=== PATIENT | female | born 1960 | race Two or more races ===

== ENCOUNTER → 2017-12-12 | Outpatient (CLI) | payer MEDICAID | END | disposition home or self-care (01) | LOC: Rad HDHVI 08:02 | PROVIDERS: ATTEND Internal Medicine Cardiovascular Disease | DX: I25.10 Atherosclerotic heart disease of native coronary artery without angina pectoris (principal); I10 Essential (primary) hypertension | CPT/HCPCS: 93306 ==

== ENCOUNTER → 2017-12-27 | Outpatient (CLI) | payer MEDICAID ==
[~2017-12-27] VITALS: Ht 30.5 cm; Wt 0.5 kg
[~2017-12-27] MED LIST: ADENOSINE 78 MG in GIVE UN-DILUTED 0 ML IV ONE; ADENOSINE 90 MG/30 ML INJ IV ONE
== END | disposition home or self-care (01) ==
LOC: Rad HDHVI 09:04
PROVIDERS: ATTEND Internal Medicine Cardiovascular Disease
DX: I35.8 Other nonrheumatic aortic valve disorders (principal); I10 Essential (primary) hypertension; I49.5 Sick sinus syndrome; R06.02 Shortness of breath
CPT/HCPCS: 78452; 93005; 96374; 96375; A9500; J0153

== ENCOUNTER 2024-02-16 11:54 | Emergency (ER) | payer MEDICAID ==
[~2024-02-16] VITALS: Ht 157.5 cm; Wt 81.2 kg
[2024-02-16 13:50] VITALS: BP 126/73; PULSE 75; RESP 16; TEMP 98.3; O2SAT 96
== END 2024-02-16 14:36 | disposition home or self-care (01) ==
LOC: ER 11:54
DX: S83.8X1A Sprain of other specified parts of right knee, initial encounter (principal); X50.1XXA Overexertion from prolonged static or awkward postures, initial encounter; M19.90 Unspecified osteoarthritis, unspecified site; Y93.89 Activity, other specified; Y92.098 Other place in other non-institutional residence as the place of occurrence of the external cause; Y99.8 Other external cause status
CPT/HCPCS: 73562